=== PATIENT | male | born 1955 | race Caucasian/White ===

== ENCOUNTER 2016-12-16 19:44 | Emergency (ER) | payer OTHER ==
[~2016-12-16] VITALS: Ht 175.3 cm; Wt 68.3 kg
[~2016-12-16 19:44] MED LIST: ANALGESIC325 MG; ASP PO; CENTRUM SILV1 TABLE1 PO; FLEXERIL10 MG PO; MOTRIN600 MG PO
[2016-12-16 20:25] LABS: HEMATOCRIT 47.2 % (38.0-50.0); MCH 30.7 PG (29.0-34.0); MCHC 33.9 G/DL (30.0-36.0); MCV 90.6 FL (86-99); MEAN PLAT.VOLUME 9.7 uM^3 (9.0-12.4); PLATELET COUNT 240 K/uL (156-360); RBC DIS.WIDTH-CV 12.3 % (11.8-14.6); RBC DIS.WIDTH-SD 40.5 % (39-53); RED BLOOD COUNT 5.21 M/uL (4.00-5.50); WHITE BLOOD COUNT 14.5 K/uL (4.1-10.2)
[2016-12-16 20:36] LABS: CHLORIDE 104 mEq/L (99-109); POTASSIUM 4.1 mEq/L (3.7-5.4); SODIUM 140 mEq/L (136-147)
[2016-12-16 20:38] LABS: GLUCOSE 111 mg/dL (70-99)
[2016-12-16 20:40] LABS: ANION GAP 9 MEQ/L (2-14); TOTAL BILIRUBIN 0.9 mg/dL (0.0-1.0)
[2016-12-16 20:42] LABS: ALKALINE PHOSPHATASE 97 IU/L (3-129); GFR ESTIMATE (CALCULATED) > 59 mL/min/
[2016-12-16 20:43] LABS: UREA NITROGEN (BUN) 18 mg/dL (9-23)
[2016-12-17 04:35] VITALS: BP 143/100
== END 2016-12-17 04:38 | disposition short-term general hospital (02) ==
LOC: EXP 19:44 → EME 19:44 → EXP 12-17 04:38
DX: K56.60 Unspecified intestinal obstruction (principal); Z87.891 Personal history of nicotine dependence; Z90.49 Acquired absence of other specified parts of digestive tract; Z86.010 Personal history of colon polyps; Z93.4 Other artificial openings of gastrointestinal tract status
CPT/HCPCS: 74020; 74177; 80053; 81003; 85027; 99281; 99285; J2270; J2405; J3010; J7030